=== PATIENT | male | born 1995 | race African-American/Black ===

== ENCOUNTER 2017-04-03 11:59 | Emergency (ER) | payer OTHER ==
[~2017-04-03] VITALS: Ht 182.9 cm; Wt 81.6 kg
--- NOTE | 2017-04-03 12:35 | ED ANKLE/FOOT INJURY COMPLAINT ---
History of Present Illness General Chief Complaint: Foot or Ankle Injury Stated Complaint: L FOOT INJURY X 3 DAYS Source: patient Exam Limitations: no limitations Vital Signs & Intake/Output Vital Signs & Intake/Output Vital Signs Date Time Temp Pulse Resp B/P B/P Pulse O2 O2 Flow FiO2 Mean Ox Delivery Rate 04/03 1201 98.0 80 18 144/67 98 Room Air Allergies Coded Allergies: No Known Allergies (04/03/17) Triage Note: 21 Y/O MALE C/O L FOOT PAIN/SWELLING (OUTER ASPECT OF FOOT) S/P INJURY AT WORK FRIDAY; STATES HE WAS STOCKING AND HIS FOOT GOT JAMMED BETWEEN PALLETS. DECLINES OFFER OF MEDS, REQUESTING XRAY WORKMANS COMP COMPLETED Triage Nurses Notes Reviewed? yes Occurred: 3 DAYS GO Duration: day(s): (3) Timing: no prior history Severity: moderate Severity Numbers: 6 Pain/Injury Location: Left: Foot. Method of Injury: twisted, GOT FOOT CAUGHT INBETWEEN PALLET Modifying Factors: Improves With: immobilization. Worsens With: movement. HPI: Patient is a 21-year-old male presenting to the emergency Department chief complaint left foot pain that started 3 days ago. Patient reports that he was at work when it happened. Got his foot caught into pallets. Pain is achy and throbbing currently moderate. Worse with palpation and ambulation. Denies taking anything at home to help with symptoms. No history of similar symptoms in the past. Denies any other injury. Denies any calf pain, knee pain. No numbness or tingling. Denies any bruising. Denies any abrasions. Past History Travel History Traveled to [place] past 21 day No Medical History Any Pertinent Medical History? see below for history Neurological: NONE EENT: NONE Cardiovascular: NONE Respiratory: NONE Gastrointestinal: NONE Hepatic: NONE Renal: NONE Musculoskeletal: NONE Psychiatric: NONE Endocrine: NONE Blood Disorders: NONE Cancer(s): NONE FURNACE TAPPER/Reproductive: NONE Surgical History Surgical History: non-contributory Psychosocial History What is your primary language [place] Tobacco Use: Never used Family History Hx Contributory? No Review of Systems Review of Systems Constitutional: Reports: no symptoms. Comments Review of systems: See HPI, All other systems negative. Constitutional, no chills fever or weight loss HEENT: No visual changes no sore throat no congestion Cardiovascular: No chest pain ,palpitation , orthopnea or ankle swelling Skin, no jaundice no rashes Respiratory: No dyspnea cough sputum or hemoptysis GI: No nausea no vomiting : No dysuria No hematuria Muscle skeletal: no back pain, no neck pain Neurologic: No numbness no confusion Psych: No stress anxiety Immunology: No splenectomy or history of AIDS Physical Exam Physical Exam General Appearance: well developed/nourished, no apparent distress, alert, awake , comfortable Leg/Knee/Thigh Left: normal range of motion, normal inspection Comments: Well-developed well-nourished no apparent distress. HEENT: Atraumatic, extraocular motion intact Neck: Supple, no lymphadenopathy Back: Nontender Respiratory: No respiratory distress Extremities: Left foot with moderate tenderness laterally over the lateral ligaments. No bony tenderness. No medial tenderness. Range of motion is near full but somewhat limited due to pain. No instability is noted. Skin is intact, no ecchymosis or edema appreciated.. The foot is neurovascularly intact with sensation and motor grossly intact. No fifth metatarsal pain to palpation. Able to move all toes. Neuro: Alert and oriented x3 Psych: Mood affect normal, normal memory normal judgment. Progress Differential Diagnosis: fracture, dislocation, sprain, contusion Plan of Care: Orders Procedure Date/time Status XRY-FOOT COMPLETE, LEFT 04/03 1206 Active Diagnostic Imaging: Viewed by Me: Radiology Read. Discussed w/RAD: Radiology Read. Radiology Impression: PATIENT: TUCKER VIRK PRESENT AGE: 21 PATIENT ACCOUNT NO: [id number] : 96 LOCATION: [facility] ORDERING PHYSICIAN: THALIA CUEVAS MD SERVICE DATE: 04/03/17 EXAM TYPE: RAD - XRY-FOOT COMPLETE, LEFT EXAMINATION: XR FOOT, LEFT CLINICAL INFORMATION: Pain and swelling status post injury. COMPARISON: None TECHNIQUE: AP, lateral, and oblique views of the left foot. FINDINGS: There is no fracture or dislocation. Alignment is anatomic. Joint spaces are maintained. The soft tissues are unremarkable. No ankle joint effusion. IMPRESSION: No fracture or malalignment. DICTATED BY: DONALD HARRINGTON,ARACELI DATE/TIME DICTATED:04/03/171230 DYE RANGE FEEDER:ENDY DATE/TIME TRANSCRIBED:04/03/171230 CONFIDENTIAL, DO NOT COPY WITHOUT APPROPRIATE AUTHORIZATION. <Electronically signed in Other Vendor System> Comments: Patient informed of x-ray results. Educated on resting and icing and elevating. Given work note for the next 2-3 days. He'll return for worsening symptoms. Departure Departure Time of Disposition: 1242 Disposition: HOME OR SELF CARE Condition: Stable Clinical Impression Primary Impression: Foot contusion Qualifiers: Encounter type: initial encounter Laterality: left Qualified Code: S90.32XA - Contusion of left foot, initial encounter Referrals: PATIENT HAS NO PRIMARY CARE DR (PCP/Family) Additional Instructions: Follow-up with your primary care physician call to make an appointment. Rest ice and elevate affected extremity. Use [id number] Motrin and Tylenol as directed. Return for worsening symptoms or concerns. Use Jose Enrique wrap for support. Departure Forms: Customer Survey Employee Industrial Accident General Discharge Information
--- NOTE | 2017-04-03 12:39 | RADIOLOGY REPORT ---
EXAMINATION: XR FOOT, LEFT CLINICAL INFORMATION: Pain and swelling status post injury. COMPARISON: None TECHNIQUE: AP, lateral, and oblique views of the left foot. FINDINGS: There is no fracture or dislocation. Alignment is anatomic. Joint spaces are maintained. The soft tissues are unremarkable. No ankle joint effusion. IMPRESSION: No fracture or malalignment.
== END 2017-04-03 13:15 ==
LOC: ERH 11:59
DX: S90.32XA Contusion of left foot, initial encounter (principal); X58.XXXA Exposure to other specified factors, initial encounter; Y92.9 Unspecified place or not applicable; Y93.9 Activity, unspecified
CPT/HCPCS: 73630-LT